=== PATIENT | female | born 1935 | race Caucasian/White ===

== ENCOUNTER → 2017-02-18 | Outpatient (CLI) | payer MEDICARE, OTHER ==
[~2017-02-18] MED LIST: COZAAR100 MG PO; LEVAQUIN 5500 MG/TA1 PO; NORCO 325 MG-51 TAB PO; PREMARIN .3MG0.3 MG PO; ZOFRAN ODT4 MG PO
== END ==
LOC: MC.RAD 14:26
DX: Z12.31 Encounter for screening mammogram for malignant neoplasm of breast (principal)

== ENCOUNTER → 2018-03-28 | Outpatient (CLI) | payer MEDICARE, OTHER | LOC: MC.RAD 13:51 | DX: Z12.31 Encounter for screening mammogram for malignant neoplasm of breast (principal) ==

== ENCOUNTER → 2019-06-29 | Outpatient (CLI) | payer MEDICARE, OTHER | LOC: MC.RAD 13:36 | DX: Z12.31 Encounter for screening mammogram for malignant neoplasm of breast (principal) ==

== ENCOUNTER → 2020-09-22 | Outpatient (CLI) | payer MEDICARE, OTHER | LOC: MC.RAD 13:48 | DX: Z12.31 Encounter for screening mammogram for malignant neoplasm of breast (principal) ==

== ENCOUNTER → 2022-02-03 | Outpatient (CLI) | payer MEDICARE, OTHER | LOC: MC.RAD 13:30 | DX: Z12.31 Encounter for screening mammogram for malignant neoplasm of breast (principal) ==